=== PATIENT | female | born 2000 | race Caucasian/White ===

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

== ENCOUNTER → 2019-10-09 | Outpatient (CLI) | payer OTHER ==
[~2019-10-09] MED LIST: LACTATED RINGERS 1,000 ML IVS ONE
[2019-10-09 15:10] VITALS: BP 112/72; TEMP 98.1; O2SAT 100
== END | disposition home or self-care (01) ==
LOC: INFRM 12:58
PROVIDERS: ATTEND Emergency Medicine
DX: R11.10 Vomiting, unspecified (principal)

== ENCOUNTER → 2020-01-10 | Outpatient (CLI) | payer OTHER | LOC: LAB.O 09:28 | PROVIDERS: ATTEND Emergency Medicine | DX: Z34.93 Encounter for supervision of normal pregnancy, unspecified, third trimester (principal); Z3A.00 Weeks of gestation of pregnancy not specified ==